=== PATIENT | female | born 1935 | race Caucasian/White ===

== ENCOUNTER 2017-10-03 01:54 | Inpatient (IN) | payer MEDICARE ==
[~2017-10-03] VITALS: Ht 154.9 cm; Wt 60.4 kg
[2017-10-03] MEDS ORDERED: ONDANSETRON HCL MDV 20ML 2 MG/ML VIAL ONE (02:13)
[2017-10-03] MEDS ORDERED: SODIUM CHLORIDE 0.9% 1000ML 1,000 ML IV ONE (02:13)
[2017-10-03 02:21] LABS: BASOPHILS % (AUTO) 1.3 % (0.0-5.0); EOSINOPHILS % (AUTO) 2.1 % (0.0-8.0); HEMATOCRIT 45.4 % (36-48); LYMPHOCYTES % (AUTO) 27.1 % (21.0-51.0); MEAN CORPUSCULAR HEMOGLOBIN 31.7 pg (27.0-33.0); MEAN CORPUSCULAR HGB CONC 34.2 g/dL (32.0-36.0); MEAN CORPUSCULAR VOLUME 92.8 fL (79-99); MONOCYTES % (AUTO) 4.4 % (3.0-13.0); NEUTROPHILS % (AUTO) 65.1 % (40.0-77.0); NUCLEATED RED BLOOD CELLS 0.1 % (0.0-0.19); PLATELET COUNT (AUTO) 353 K/uL (130-400); RED BLOOD CELL COUNT(AUTO) 4.89 MIL/uL (4.00-5.50); RED CELL DISTRIBUTION WIDTH 13.6 % (11.0-15.5)
[2017-10-03 02:34] LABS: CREATININE 0.9 mg/dL (0.5-1.5)
[2017-10-03 02:38] LABS: ALBUMIN 4.1 g/dL (3.5-5.0); BILIRUBIN,TOTAL 0.8 mg/dL (0.2-1.0); TOTAL PROTEIN, SERUM 7.6 g/dL (6.0-8.3)
[2017-10-03] MEDS ORDERED: NITROGLYCERIN 1GM/1 INCH PACKET TD ONE (03:10)
[2017-10-03 03:50] LABS: APPEARANCE,URINE CLOUDY (CLEAR); BILIRUBIN,URINE Negative (NEGATIVE); COLOR,URINE Yellow (YELLOW); GLUCOSE, URINE (UA) TRACE mg/dL (NEGATIVE); KETONES,URINE 15 mg/dL (NEGATIVE); LEUKOCYTE ESTERASE ,URINE Large (NEGATIVE); NITRATE,URINE Positive (NEGATIVE); OCCULT BLOOD,URINE Trace (NEGATIVE); PROTEIN,URINE POS 2+ (NEGATIVE); UROBILINOGEN,URINE 0.2 mg/dL (0.2-1.0)
[2017-10-03 03:58] LABS: INR 1.1 (0.85-1.15); PARTIAL THROMBOPLASTIN TIME 24.5 SEC (26.3-35.5); PROTHROMBIN TIME 11.5 SEC (9.6-11.6)
[2017-10-03 04:00] LABS: RBC,URINE None Seen /HPF (0-1)
[2017-10-03 04:01] LABS: BACTERIA,URINE Moderate /HPF (None Seen); SQUAMOUS EPITHELIAL CELL,UR 0-2 /HPF (0-2); WBC,URINE >100 /HPF (0-1)
[2017-10-03] MEDS ORDERED: ASPIRIN 81MG TAB.CHEW ONE (04:27)
[2017-10-03] MEDS ORDERED: ENOXAPARIN SODIUM 60 MG/0.6 ML SQ ONE (05:10)
[2017-10-03] MEDS ORDERED: ZOSYN 3.375GM+NS 50ML 50 ML IV ONE (05:10)
[2017-10-03] MEDS ORDERED: LABETALOL HCL 5 MG/ML 20ML VIAL IV PRN (05:45)
[2017-10-03] MEDS: SODIUM CHLORIDE 0.9% 1000ML 1,000 ML IV SCH ×4 (05:45→23:53)
[2017-10-03] MEDS ORDERED: NITROGLYCERIN 1GM/1 INCH PACKET TD SCH (06:00)
[2017-10-03] MEDS ORDERED: HYDRALAZINE HCL 20 MG/ML VIAL IV PRN (07:15)
[2017-10-03] MEDS ORDERED: POTASSIUM CHLORIDE 20MEQ/100ML 100 ML IV PRN (07:15)
[2017-10-03] MEDS: NITROGLYCERIN 1GM/1 INCH PACKET TD SCH ×3 (07:15→23:20)
[2017-10-03] MEDS ORDERED: DEXTROSE 50%-WATER 50 ML DISP.SYRIN IV PRN (07:15)
[2017-10-03] MEDS ORDERED: GLUCAGON 1MG KIT 1 MG ML IM PRN (07:15)
[2017-10-03] MEDS ORDERED: LIDOCAINE HCL-MPF 1% 2ML VIAL IVP PRN (07:15)
[2017-10-03] MEDS: INSULIN HUMULIN R 100 UNIT/ML 3ML SQ SCH ×4 (07:15→23:28)
[2017-10-03] MEDS ORDERED: POTASSIUM CHLORIDE 10% ELIXIR 20 MEQ/15 ML UDCUP PO PRN (07:15)
[2017-10-03] MEDS ORDERED: CEFTRIAXONE 1GM/D5W 50ML 50 ML IV SCH (07:15)
[2017-10-03] MEDS ORDERED: POTASSIUM CHLORIDE 20 MEQ ERTAB PO PRN (07:15)
[2017-10-03] MEDS: CEFTRIAXONE SODIUM 1 GM IVP SCH (07:30)
[2017-10-03] MEDS ORDERED: ONDANSETRON HCL MDV 20ML 2 MG/ML VIAL IVP PRN (07:30)
[2017-10-03 07:50] VITALS: BP 117/62
[2017-10-03] MEDS: ASPIRIN 325 MG TABLET PO SCH (09:00)
[2017-10-03] MEDS: FAMOTIDINE/PF 20 MG/2 ML VIAL IV SCH ×2 (09:00→20:16)
[2017-10-03] MEDS ORDERED: METOPROLOL TARTRATE 25 MG TAB PO SCH (09:00)
[2017-10-03] MEDS ORDERED: RANI150T7 PO (11:08)
[2017-10-03] MEDS ORDERED: METO2.5T2 PO (11:08)
[2017-10-03] MEDS ORDERED: GLIM1TAB2 PO (11:08)
[2017-10-03 11:36] LABS: HEMOGLOBIN A1C 7.4 % (4.0-6.0)
[2017-10-03 11:42] LABS: CREATINE KINASE MB 13.9 ng/mL (0.5-3.6); THYROID STIMULATING HORMONE 1.83 uIU/mL (0.36-3.74)
[2017-10-03 12:03] LABS: TROPONIN I 3.85 ng/mL (0.00-0.06)
[2017-10-03 12:14] VITALS: BP 117/52
[2017-10-03 16:00] VITALS: BP 128/59
[2017-10-03 16:38] LABS: CREATINE KINASE MB 6.9 ng/mL (0.5-3.6)
[2017-10-03 16:52] LABS: TROPONIN I 3.45 ng/mL (0.00-0.06)
[2017-10-03] MEDS ORDERED: ENOXAPARIN SODIUM 1 MG/KG SQ SCH (17:00)
[2017-10-03 19:16] VITALS: BP 138/73
[2017-10-03] MEDS: GLIMEPIRIDE 2 MG TABLET PO SCH (20:16)
[2017-10-03 23:05] VITALS: BP 130/60
[2017-10-03] MEDS ORDERED: METOPROLOL TARTRATE 25 MG TAB ONE (23:18)
[2017-10-04 03:59] VITALS: BP 122/62
[2017-10-04 04:36] LABS: HEMATOCRIT 34.5 % (36-48); MEAN CORPUSCULAR HEMOGLOBIN 32.9 pg (27.0-33.0); MEAN CORPUSCULAR HGB CONC 35.2 g/dL (32.0-36.0); MEAN CORPUSCULAR VOLUME 93.5 fL (79-99); PLATELET COUNT (AUTO) 293 K/uL (130-400); RED BLOOD CELL COUNT(AUTO) 3.69 MIL/uL (4.00-5.50); RED CELL DISTRIBUTION WIDTH 13.4 % (11.0-15.5); WHITE BLOOD COUNT (AUTO) 10.3 K/uL (4.8-10.8)
[2017-10-04 04:47] LABS: CREATININE 1.4 mg/dL (0.5-1.5); POTASSIUM 3.6 mmol/L (3.5-5.1)
[2017-10-04] MEDS: INSULIN HUMULIN R 100 UNIT/ML 3ML SQ SCH ×4 (05:40→21:00)
[2017-10-04] MEDS: CEFTRIAXONE SODIUM 1 GM IVP SCH (06:18)
[2017-10-04] MEDS: NITROGLYCERIN 1GM/1 INCH PACKET TD SCH ×2 (06:18→15:15)
[2017-10-04 07:32] VITALS: BP 156/82
[2017-10-04] MEDS: FAMOTIDINE/PF 20 MG/2 ML VIAL IV SCH ×2 (09:00→20:12)
[2017-10-04] MEDS: GLIMEPIRIDE 2 MG TABLET PO SCH ×2 (09:00→20:12)
[2017-10-04] MEDS: METOPROLOL TARTRATE 25 MG TAB PO SCH ×3 (09:00→21:00)
[2017-10-04] MEDS: ENOXAPARIN SODIUM 60 MG/0.6 ML SQ SCH (10:12)
[2017-10-04] MEDS: ASPIRIN 325 MG TABLET PO SCH (10:12)
[2017-10-04] MEDS: RANITIDINE HCL 15 MG/1 ML PO SCH (10:12)
[2017-10-04 11:11] VITALS: BP 149/83
[2017-10-04] MEDS ORDERED: REGADENOSON 0.4 MG/5 ML PF SYG IVP ONE (13:00)
[2017-10-04 19:12] VITALS: BP 145/65
[2017-10-04 23:03] VITALS: BP 150/64
[2017-10-05 03:11] VITALS: BP 135/70
[2017-10-05 04:19] LABS: CREATININE 1.1 mg/dL (0.5-1.5); POTASSIUM 3.8 mmol/L (3.5-5.1)
[2017-10-05] MEDS: INSULIN HUMULIN R 100 UNIT/ML 3ML SQ SCH (05:50)
[2017-10-05] MEDS: CEFTRIAXONE SODIUM 1 GM IVP SCH (07:30)
[2017-10-05 07:58] VITALS: BP 150/80
[2017-10-05] MEDS: FAMOTIDINE/PF 20 MG/2 ML VIAL IV SCH (08:54)
[2017-10-05] MEDS: GLIMEPIRIDE 2 MG TABLET PO SCH (08:56)
[2017-10-05] MEDS: METOPROLOL TARTRATE 25 MG TAB PO SCH (08:57)
[2017-10-05] MEDS: RANITIDINE HCL 15 MG/1 ML PO SCH (08:58)
[2017-10-05] MEDS ORDERED: METOLAZONE 2.5 MG TABLET PO SCH (09:00)
[2017-10-05] MEDS ORDERED: ISOSORBIDE MONO 30MG TAB SR PO SCH (09:00)
[2017-10-05] MEDS ORDERED: ASPIRIN 81MG TAB.CHEW PO SCH (09:00)
[2017-10-05] MEDS: ENOXAPARIN SODIUM 60 MG/0.6 ML SQ SCH (09:00)
[2017-10-05] MEDS ORDERED: ASPI-1005 PO (10:22)
[2017-10-05] MEDS ORDERED: METO25 PO (10:22)
[2017-10-05] MEDS ORDERED: LEVO500T2 PO (10:23)
[2017-10-05 11:23] VITALS: BP 129/51
== END 2017-10-05 13:30 | disposition home or self-care (01) | DRG 871 ==
LOC: EDH 01:54 → EDHIP 05:10 → OBSVTOIN 05:10 → 2CH 10:52
PROVIDERS: ADMIT Family Medicine; ATTEND Family Medicine
DX: A41.9 Sepsis, unspecified organism (principal); I21.4 Non-ST elevation (NSTEMI) myocardial infarction; E11.65 Type 2 diabetes mellitus with hyperglycemia; N39.0 Urinary tract infection, site not specified; I25.2 Old myocardial infarction; I10 Essential (primary) hypertension; Z98.51 Tubal ligation status
CPT/HCPCS: 36415; 71045; 78452; 80048; 80053; 80061; 81001; 82550; 82553; 82948; 83036; 83605; 83690; 83874; 84443; 84484; 85025; 85027; 85610; 85730; 87040; 87088; 87186; 87804; 93005; 93017; 93306; 96374; 99291; A4218; A9500; J0696; J1650; J1815; J2543; J2785; J3490; J7030